=== PATIENT | male | born 1965 | race Caucasian/White ===

== ENCOUNTER → 2020-02-11 08:04 | Outpatient (CLI) | payer BC, SELFPAY ==
--- NOTE | 2020-02-11 | DI.US.S_ITS ---
PROCEDURE: US ABDOMEN COMPLETE INDICATIONS: Hepatomegaly, not elsewhere classified TECHNIQUE: Real-time scanning was performed of the abdominal and retroperitoneal organs, with image documentation. COMPARISON: None. FINDINGS: Liver: The liver demonstrates prominent size. The liver demonstrates generalized moderately increased echogenicity. This decreases ultrasound sensitivity for detection of hepatic masses. Gallbladder: No findings of gallstones or sludge are seen. The gallbladder wall is not thickened, measuring 3 mm or less. No specific pericholecystic fluid is seen. The sonographic Ariza sign is negative. Biliary ducts: Intrahepatic bile ducts are non-dilated. Extrahepatic bile duct caliber measures 3 mm. Normal is 6-7 mm or less in diameter, or 10 mm or less post-cholecystectomy. Pancreas: Visualized portions of the pancreas are sonographically normal. Spleen: Spleen is normal in size and homogeneous in echotexture. Kidneys: Kidneys are normal in size and echotexture. Right kidney measures 11.3 cm long; left kidney measures 11 cm long. No hydronephrosis. No solid masses. Small echogenic foci are seen within the kidneys, which are attributed to nonobstructing stones. Aorta: Visualized aorta is normal in caliber at less than 3 cm. Iliacs: Proximal common iliac arteries are normal in caliber at less than 2.5 cm. IVC: Intrahepatic inferior vena cava is patent. Miscellaneous: No free abdominal fluid. IMPRESSION: Enlarged, fatty liver. The gallbladder demonstrates a normal sonographic appearance. No biliary dilatation is seen. Apparent nonobstructing bilateral renal stones Dictated by: Lefty Vang M.D. on 02/11/2020 at 8:19 Approved by: Lefty Vang M.D. on 02/11/2020 at 8:20
== END ==
PROVIDERS: PCP Internal Medicine; Referring Provider Internal Medicine; Visit Provider Internal Medicine
DX: R16.0 Hepatomegaly, not elsewhere classified (principal); K76.0 Fatty (change of) liver, not elsewhere classified; N20.0 Calculus of kidney
CPT/HCPCS: 76700